=== PATIENT | female | born 1955 | race Caucasian/White ===

== ENCOUNTER → 2018-03-25 | Outpatient (CLI) | payer MEDICARE | LOC: CFH 08:56 | PROVIDERS: ATTEND Family Medicine | DX: N64.4 Mastodynia (principal); M06.9 Rheumatoid arthritis, unspecified; M79.89 Other specified soft tissue disorders; Z92.3 Personal history of irradiation; Z85.3 Personal history of malignant neoplasm of breast | CPT/HCPCS: 77066 ==